=== PATIENT | female | born 1990 | race Caucasian/White ===

== ENCOUNTER 2020-07-25 19:19 | Emergency (ER) | payer SELFPAY ==
[2020-07-25 19:22] VITALS: BP 140/97; PULSE 96; RESP 14; TEMP 36.5; O2SAT 100; BMI 34.2
--- NOTE | 2020-07-25 20:06 | W.ED.HA ---
HPI - Headache General: Chief Complaint: Headache Stated Complaint: MIGRAINE Time Seen by Provider: 07/25/20 20:06 History of Present Illness: HPI Narrative: Patient is a 30-year-old female comes to the ED with a migraine. Patient just moved down to the [place] area within the last week. Patient says she started having migraines little over a month ago and before she moved down here to [place] she lived up in [place] and was scheduled to have an MRI of head performed there in [place] but patient moved here to [place] before scheduled MRI. She says she has been having multiple migraines for the past month. Currently she says this migraine started today and she has photophobia, nausea, blurry vision and right facial numbness/tingling and on right upper and lower extremity. Denies any head trauma, fall or motor vehicle accident to cause headache. She she describes the pain is generalized throughout her head but has more severe throbbing pain on right side of head. She rates the migraine a 10 out of 10. Associated symptoms: Reports nausea; Deny chest pain, fever(s), rash or vomiting Review of Systems Const: Denies: fever(s), chills or fatigue Eyes: Reports: photophobia; Denies: change in vision or eye discomfort ENMT: Denies: throat pain, odynophagia, nasal discharge or nasal congestion Card: Denies: chest pain, palpitations, edema, swelling of feet/ankles, dyspnea on exertion or orthopnea Resp: Denies: dyspnea, productive cough or non-productive cough GI: Reports: nausea; Denies: abdominal pain, vomiting, diarrhea, constipation or hematochezia : Denies: flank pain, dysuria or hematuria Musc: Denies: neck pain, back pain or extremity swelling Skin/Breast: Denies: rash or new lesions Neuro: Reports: headache(s) and numbness in extremities (Numbness/tingling to right side of body and right side of face.); Denies: weakness in extremities [facility] Female Reproductive History: Date of last menstrual period: 07/10/20 Physical Exam Const: COMMON NORMALS: no acute distress, patient oriented x3 and alert GENERAL APPEARANCE: cooperative and comfortable HENMT: COMMON NORMALS: normocephalic HEAD & SCALP: normocephalic MOUTH: Normal oral and palatal mucosa present THROAT: posterior oropharynx normal and uvula midline Eye: COMMON NORMALS: Equal, round and reactive pupils present, EOMs intact bilaterally, conjunctivae normal and normal visual castillo by confrontation CONJUNCTIVA: Yes conjunctivae normal PUPIL: Yes Equal, round and reactive pupils present Neck/C-Spine: COMMON NORMALS: supple GENERAL: Yes normal visual inspection Resp: COMMON NORMALS: normal respiratory effort, No retractions, No use of accessory muscles and clear to auscultation bilaterally AUSCULTATION: clear to auscultation bilaterally Cardio: COMMON NORMALS: regular rate, regular rhythm, S1 normal heart sound present, S2 normal heart sound present, No gallops present (Cardio), No clicks present (Cardio), No murmurs present (Cardio) and Peripheral pulses 2+ throughout RATE: regular rate RHYTHM: regular rhythm HEART SOUNDS: S1 normal heart sound present and S2 normal heart sound present PERIPHERAL PULSES: Peripheral pulses 2+ throughout GI: COMMON NORMALS: Normal to inspection, nondistended, normoactive bowel sounds present, Soft to palpation, non-tender and no masses PALPATION: Yes Soft to palpation : COMMON NORMALS: Yes no CVA tenderness BLADDER/KIDNEY EXAM: Yes no CVA tenderness Back/Pelvis: COMMON NORMALS: no CVA tenderness Extremity: COMMON NORMALS: normal to inspection Neuro: COMMON NORMALS: patient oriented x3, moves all extremities, no focal motor deficits and no sensory deficits noted SENSORIUM/ORIENTATION: Yes alert CRANIAL NERVES: Yes CN normal except as noted and Yes CN V (trigeminal) CN V laterality: right CN V right: all branch sensations abnormal (decreased sensation to to light touch) SENSORY EXAM: Yes extremities (intact) MOTOR EXAM: 5/5 motor strength present throughout Skin: COMMON NORMALS: no rashes or lesions noted GENERAL SKIN EXAM: no rashes or lesions noted and dry skin Course Reevaluation(s): Reevaluation #1: Patient was given migraine cocktail of Toradol, IV fluids, Decadron, Benadryl, Reglan and minimal improvement, but she was ready to go home. I offered her another medication to help alleviate migraine, but pt refused. Vital Signs: Vital signs: Vital Signs Temperature 97.7 F 07/25/20 19:22 Pulse Rate 73 07/25/20 22:25 Respiratory Rate 16 07/25/20 22:25 Blood Pressure 119/68 07/25/20 22:25 Pulse Oximetry 97 07/25/20 22:25 MDM - Headache MDM Narrative: Medical decision making narrative: Patient is a 30-year-old female comes to the ED with migraine. Patient has been having on and off again frequent migraines over the past month. Patient just moved to [place], but was previously living in [place] had an MRI of the head scheduled, but she is not able to go to MRI appointment because she was transferred by her job down to [place] before MRI appointment. Patient is complaining of having some tingling to face and right arm and right leg. Neuro exam was normal except for patient having decreased sensation to right side of face. CT of the head showed no acute findings. Patient was given migraine cocktail of Toradol, IV fluids, Decadron, Benadryl, Reglan and minimal improvement, but she was ready to go home. I offered her another medication to help alleviate migraine, but pt refused. I placed a referral to neurology with case management since patient having a history of recent migraines and had a scheduled MRI of her head in [place] but missed appointment since she moved here to [place]. Return to ED precautions given. Follow-up with PCP in 7 to 10 days for reevaluation I told patient that case management will be contacting her in the next several days to set up an appointment with neurology. Patient understood and agreed with plan. Imaging Data^: CT Head: Attestation: I personally reviewed and interpreted this imaging study as follows: Radiologist's impression: [address] [address] [address] Scan Report Signed Patient: RUFINO CHU Unit #: [id number] : 1990 Age/Sex: 30 / F ADM Date: 07/25/20 Loc: ER Room/Bed: Attending Dr: Ordering Provider/Ordering MD: Yossi Blake Date of Service: 07/25/20 Procedure(s): CT head wo con* [id number] Accession Number(s): [id number] Report Number: [id number] PROCEDURE INFORMATION: Exam: CT Head Without Contrast Exam date and time: 07/25/2020 8:31 PM Age: 30 years old Clinical indication: Pain; Headache; Additional info: Migraine TECHNIQUE: Imaging protocol: Computed tomography of the head without contrast. Radiation optimization: All CT scans at this facility use at least one of these dose optimization techniques: automated exposure control; mA and/or kV adjustment per patient size (includes targeted exams where dose is matched to clinical indication); or iterative reconstruction. COMPARISON: No relevant prior studies available. RADIATION DOSE METRICS: Total DLP (mGy-cm): 857.41 FINDINGS: The ventricles, sulci and basilar cisterns appear normal for the patient's stated age. There is no evidence of mass, hemorrhage or infarct. No extra-axial fluid collections are identified. There is no midline shift. There is no evidence of fracture. The visualized paranasal sinuses are well-aerated. CT/CT head wo con* [id number] IMPRESSION: No evidence for acute infarct, mass or hemorrhage. Radiation Dose CTDIVOL = (mGy): DLP = 857.41 (mGy-cm) Dictated By: Omer Winston MD Signed By: Omer Winston MD Signed Date/Time: 07/25/202052 DD/ 51 Discharge Plan Discharge Patient Disposition: Home Clinical Impression: Migraine Qualifiers: Migraine type: without aura Status migrainosus presence: without status migrainosus Intractability: not intractable Qualified Code(s): G43.009 - Migraine without aura, not intractable, without status migrainosus Condition: Stable Prescriptions: No Action Migraine Relief See Rx Instructions .ROUTE .COMPLEX RF: 0 Discharge Orders: Discharge Order (Routine); Ordered 07/25/20 Ordered By: Yossi Blake Discharge Diet: Regular Discharge Activity: Increase activity as tolerated Patient Instructions: Headache - Migraine (Adult) Activity Restrictions/Additional Instructions: Follow-up with primary care physician in 7 to 10 days for reevaluation. Case management should be contacting you in the next several days to set up an appointment with neurology. Take [id number] ibuprofen or Tylenol or Excedrin for future headaches. Return to the ER or your medical provider if condition worsens. Please read and understand discharge instructions. If any questions, please ask. Discharge Date/Time: 07/25/20 22:27 Coding Level of Care Code ED Examining Chair Assembler for Isak Fwneema Exam Comprehensive
--- NOTE | 2020-07-25 20:24 | CTR_ITS ---
PROCEDURE INFORMATION: Exam: CT Head Without Contrast Exam date and time: 07/25/2020 8:31 PM Age: 30 years old Clinical indication: Pain; Headache; Additional info: Migraine TECHNIQUE: Imaging protocol: Computed tomography of the head without contrast. Radiation optimization: All CT scans at this facility use at least one of these dose optimization techniques: automated exposure control; mA and/or kV adjustment per patient size (includes targeted exams where dose is matched to clinical indication); or iterative reconstruction. COMPARISON: No relevant prior studies available. RADIATION DOSE METRICS: Total DLP (mGy-cm): 857.41 FINDINGS: The ventricles, sulci and basilar cisterns appear normal for the patient's stated age. There is no evidence of mass, hemorrhage or infarct. No extra-axial fluid collections are identified. There is no midline shift. There is no evidence of fracture. The visualized paranasal sinuses are well-aerated. CT/CT head wo con* [id number] IMPRESSION: No evidence for acute infarct, mass or hemorrhage. Radiation Dose CTDIVOL = (mGy): DLP = 857.41 (mGy-cm)
[2020-07-25] MEDS: sodium chloride 0.9% 1,000 ML 999 ML IV (21:10)
[2020-07-25] MEDS: diphenhydrAMINE 50 mg/mL SDV 1mL 25 MG IVP (21:13)
[2020-07-25] MEDS: ketorolac 30 mg/mL INJ IVP (21:14)
[2020-07-25] MEDS: dexamethasone 10 mg/mL INJ IVP (21:14)
[2020-07-25] MEDS: metoclopramide 5 mg/mL SDV 2 mL 10 MG IVP (21:14)
[2020-07-25 22:25] VITALS: BP 119/68; PULSE 73; RESP 16; O2SAT 97
--- NOTE | 2020-07-26 09:33 | DCPLANNER ---
apartment community manager had message to schedule a follow up appointment for patient with Dr. Meyer office. apartment community manager called the office of Dr. Ngo, gave clinic patients information. apartment community manager was told that patients information would be given to [facility]. Clinic will call patient with appointment information.
--- NOTE | 2020-07-27 10:04 | DCPLANNER ---
Addendum entered by Sarai Ford 11/09/20 12:04: Patient attended follow up appointment with Dr. Ngo Original Note: Patient has a follow up appointment scheduled for , September 13, 2020 at 1:[address] Ngo. Clinic will call patient with appointment information.
== END 2020-07-25 22:27 | disposition home or self-care (01) ==
PROVIDERS: Emergency Provider Physician Assistant
DX: G43.009 Migraine without aura, not intractable, without status migrainosus (principal)
CPT/HCPCS: 12345; 70450; 96361; 96374; 96375; 99282; J1100; J1200; J1885; J2765; J7030

== ENCOUNTER → 2020-08-01 12:18 | Outpatient (BNVA) | payer SELFPAY | PROVIDERS: Visit Provider Specialist | DX: G43.711 Chronic migraine without aura, intractable, with status migrainosus (principal) | CPT/HCPCS: 96372; 99204; J1885; J2405 ==

== ENCOUNTER 2020-08-01 14:56 | Outpatient (CLI) | payer SELFPAY ==
[2020-08-01 15:21] LABS: Basophils % 0.4 %; Eosinophils % 0.1 %; Hemoglobin 13.7 g/dL (11.5-15.3); Lymphocytes # 1.6 10^3/uL (0.8-4.8); Lymphocytes % 14.6 %; Mean Corpuscular HGB Conc 31.1 g/dL (30.0-36.0); Mean Corpuscular Hemoglobin 27.2 pg (28.0-34.0); Mean Corpuscular Volume 87.5 fL (81-99); Mean Platelet Volume 10.3 fL (7.4-10.4); Monocytes # 0.6 10^3/uL (0.2-0.9); Neutrophils % 78.5 %; Nucleated Red Blood Cells % 0 %; Platelet Count 329 10^3/cmm (130-400); Red Blood Count 5.03 10^6/uL (4.1-5.3); Red Cell Distribution Width 13.6 % (12.1-15.1); White Blood Count 10.7 10^3/uL (4.0-10.0)
[2020-08-01 16:06] LABS: Alanine Aminotransferase 14 U/L (0-33); Albumin Level 4.6 g/dL (3.5-5.2); Alkaline Phosphatase 67 IU/L (35-105); Blood Urea Nitrogen 16 mg/dL (6-20); Calcium 9.2 mg/dL (8.5-10.5); Carbon Dioxide 24 mmol/L (22-29); Chloride 100 mmol/L (98-107); Glomerular Filtration Rate 117.4 mL/min (90-130); Glucose 91 mg/dL (65-115); Osmolality Calculated 285 mOsm/kg (285-295); Sodium 137 mmol/L (136-145); Total Bilirubin 0.7 mg/dL (0.15-1.2); Total Protein 8.6 g/dL (6.6-8.7)
[2020-08-01 17:30] LABS: Anion Gap 17.8 (5-19); Aspartate Amino Transferase 16 U/L (0-32); Potassium 4.8 mmol/L (3.5-5.1)
== END 2020-08-01 14:57 | disposition home or self-care (01) ==
LOC: LAB 15:00
PROVIDERS: Visit Provider Specialist
DX: Z00.00 Encounter for general adult medical examination without abnormal findings (principal)
CPT/HCPCS: 80053; 84443; 85025

== ENCOUNTER → 2020-09-19 08:08 | Outpatient (BNVA) | payer SELFPAY | PROVIDERS: Visit Provider Specialist | DX: G43.009 Migraine without aura, not intractable, without status migrainosus (principal) | CPT/HCPCS: 99213 ==

== ENCOUNTER 2021-01-17 17:16 | Emergency (ER) | payer SELFPAY ==
[2021-01-17 17:22] VITALS: BP 143/99; PULSE 81; RESP 16; TEMP 36.6; O2SAT 99; BMI 31.8
--- NOTE | 2021-01-17 17:25 | ECG_ITS ---
[facility] Test Date: 2021-01-17 Pat Name: Selena Henson Department: Room: Gender: Female Shrimp Trawler Captain: : 1990 Requested By: Jeannette Duarte Order Number: [id number] Reading MD: KENNETH MADRID Measurements Intervals [place] Rate: 88 P: 36 WI: 178 QRS: 12 QRSD: 88 T: 31 QT: 366 QTc: 444 Interpretive Statements SINUS RHYTHM POSSIBLE LEFT ATRIAL ENLARGEMENT [-0.1mV P WAVE IN V1/V2] LOW QRS VOLTAGE IN PRECORDIAL LEADS [QRS DEFLECTION < 1.0 mV IN CHEST LEADS] No previous ECG available for comparison Electronically Signed On 01-18-2021 19:24:57 RESIDENTIAL SALES MANAGER by KENNETH MADRID [id number]
--- NOTE | 2021-01-17 17:56 | ED_ITS ---
HPI - Chest Pain General: Chief Complaint: Chest Pain Stated Complaint: NUMBNESS R SIDE FACE, DIZZY, HEAVY IN CHEST Time Seen by Provider: 01/17/21 17:25 Source: patient and family Mode of arrival: ambulatory Limitations: no limitations History of Present Illness: HPI narrative: 30-year-old female complaining of paresthesias, intermittent sharp substernal chest pains, dizziness, right facial droop intermittently over the past week. She has had similar symptoms in the past related to her migraines and is followed by Dr. Ngo. She has been taking her Topamax daily as prescribed, and feels like it is making her symptoms worse. No vision change, no sensory or taste changes of her tongue. She states that she has had work-up for stroke in the past, including MRI and CTs. She denies any shortness of breath or fever. She is not on OCPs. Associated symptoms: Deny abdominal pain, dyspnea, fever(s), nausea, p alpitations or vomiting Review of Systems General: Reports: 10 or more systems reviewed and unremarkable except in HPI and below Const: Denies: fever(s), chills, body aches, change in appetite, change in weight, fatigue or malaise Eyes: Denies: change in vision, blurry vision or photophobia ENMT: Denies: hoarseness Card: Reports: chest pain and lightheadedness; Denies: palpitations, irregular heart rhythm or edema Resp: Denies: dyspnea, productive cough or non-productive cough GI: Denies: abdominal pain, nausea or vomiting Musc: Denies: neck pain, back pain, extremity pain or extremity swelling Skin/Breast: Denies: rash, pruritus or erythema Neuro: Reports: headache(s), numbness in extremities and dizziness; Denies: frequent falls, Slurred speech present or seizure-like activity Psych: Reports: anxiety and depression Endo: Denies: polyuria Bryan/Lymph: Denies: easy bruising or easy bleeding All/Imm: Denies: urticaria, throat swelling, tongue swelling or facial swelling [facility] Female Reproductive History: Date of last menstrual period: 12/26/20 Physical Exam Const: COMMON NORMALS: no acute distress and patient oriented x3 GENERAL APPEARANCE: cooperative; not in distress, not anxious, not ill appearing, not frail appearing and not Limp noted NUTRITIONAL APPEARANCE: overweight ORIENTATION/CONSCIOUSNESS: Yes awake, Yes oriented to person, Yes oriented to place and Yes oriented to time HENMT: COMMON NORMALS: normocephalic and Normal external nose present HEAD & SCALP: normocephalic FACE & SINUS: Flattened naso-labial fold present Right; no erythema and no edema NOSE: Normal external nose present MOUTH: Normal oral and palatal mucosa present and tongue normal THROAT: uvula midline Eye: COMMON NORMALS: Equal, round and reactive pupils present, EOMs intact bilaterally, conjunctivae normal and no scleral icterus ALIGNMENT: Yes alignment normal CONJUNCTIVA: Yes conjunctivae normal PUPIL: Yes Equal, round and reactive pupils present Neck/C-Spine: COMMON NORMALS: full ROM, no lymphadenopathy and supple Resp: COMMON NORMALS: normal respiratory effort, No retractions and No use of accessory muscles Cardio: COMMON NORMALS: regular rate, regular rhythm, S1 normal heart sound present, S2 normal heart sound present and No murmurs present (Cardio) RATE: regular rate RHYTHM: regular rhythm HEART SOUNDS: S1 normal heart sound present and S2 normal heart sound present GI: COMMON NORMALS: Normal to inspection, nondistended, normoactive bowel sounds present and Soft to palpation INSPECTION: Yes normal to inspection AUSCULTATION: Yes normoactive bowel sounds PALPATION: Yes Soft to palpation, No Tenderness to palpation present (GI), No Guarding due to palpation present (GI) and No Rigid due to palpation Extremity: COMMON NORMALS: normal to inspection, full ROM, capillary refill normal and no clubbing, cyanosis or edema Neuro: COMMON NORMALS: patient oriented x3 SENSORIUM/ORIENTATION: Yes orien charisse to person, Yes oriented to place and Yes oriented to time CRANIAL NERVES: Yes CN VII (facial) Laterality: right CN VII findings: flattened naso-labial fold, weak closing of eye(s) and asymmetrical smile COORDINATION/BALANCE: [id number] test normal and avld-mt-aklv test normal SPEECH: speech normal GAIT: Yes Normal gait present MOTOR EXAM: 5/5 motor strength present throughout, no tremor noted, Motor fasciculations not present and Motor abnormalities not present COORDINATION: [id number]-[id number] test normal and izls-rr-dbxz test normal Psych: COMMON NORMALS: Normal thought process present and speech normal APPEARANCE: Yes grossly normal ATTITUDE: Yes Withdrawn affect present ACTIVITY/MOTOR BEHAVIOR: Yes appropriate eye contact SPEECH: Yes normal speech MOOD & AFFECT: Yes depressed mood THOUGHT PROCESS: Normal thought process present THOUGHT CONTENT: Yes Normal thought content present ATTENTION/CONCENTRATION: Yes attention grossly intact MEMORY/COGNITION: Yes memory grossly intact and Yes cognition grossly intact Course Vital Signs: Vital signs: Vital Signs Temperature 97.9 F 01/17/21 17:22 Pulse Rate 78 01/17/21 21:19 Respiratory Rate 14 01/17/21 21:19 Blood Pressure 117/78 01/17/21 21:19 Pulse Oximetry 100 01/17/21 21:19 MDM - Chest Pain MDM Narrative: Medical decision making narrative: 30-year-old female with acute on chronic paresthesias and right facial palsy. Facial palsy is mild and involves the forehead?so may be a mild case of Lora's palsy, however if symptoms been ongoing for a week, and intermittent. She has a history of complex migraines. No acute abnormalities on chest x-ray or EKG. Hypokalemia, otherwise chemistry normal. Given oral replacement. Urine specimen likely contaminated instead of active infection D-dimer wnl Reviewed her medical records, she has had a CT done, but apparently she missed her appointments for MRI on several occasions. CTA head neck negative for any significant stenosis or other acute findings. Paresthesias of her hand and face improved after potassium replacement. Recommended prompt follow-up with Dr. Ngo in clinic. Strict return precautions. Differential diagnosis; TIA, CVA, Lora's palsy, complex migraine, somatization. Medical Records: Attestation: I reviewed the patient's medical records. Lab Data: Attestation: I reviewed the patient's lab results. Labs: Lab Results 01/17/21 01/17/21 01/17/21 Range/Units 18:50 18:50 19:37 WBC 8.8 (4.0-10.0) 10^3/ uL RBC 4.66 (4.1-5.3) 10^6/u L Hgb 12.7 (11.5-15.3) g/dL Hct 40.4 (37.0-47.0) % MCV 86.7 (81-99) fL MCH 27.3 L (28.0-34.0) pg MCHC 31.4 (30.0-36.0) g/dL RDW 13.6 (12.1-15.1) % Plt Count 317 (130-400) 10^3/c mm MPV 11.0 H (7.4-10.4) fL Neut % (Auto) 68.8 % Lymph % (Auto) 21.5 % Grimes % (Auto) 8.3 % Eos % (Auto) 0.3 % Baso % (Auto) 0.6 % Neut # (Auto) 6.07 (1.8-7.7) 10^3/u L Lymph # (Auto) 1.9 (0.8-4.8) 10^3/u L Grimes # (Auto) 0.7 (0.2-0.9) 10^3/u L Eos # (Auto) 0.0 (0.0-0.8) 10^3/u L Baso # (Auto) 0.1 (0.0-0.1) 10^3/u L Nucleated RBC % (a uto) 0 % Nucleated RBCs # 0.0 /100WBC D-Dimer (0-0.59) ug/mIFE U Sodium 137 (136-145) mmol/L Potassium 3.3 L (3.5-5.1) mmol/L Chloride 105 (98-107) mmol/L Carbon Dioxide 23 (22-29) mmol/L Anion Gap 12.3 (5-19) BUN 9 (6-20) mg/dL Creatinine 0.7 (0.5-0.9) mg/dL GFR Calculation 98.3 (90-130) mL/min Glucose 84 (65-115) mg/dL Calculated Osmolal ity 282 L (285-295) mOsm/k g Calcium 8.7 (8.5-10.5) mg/dL Magnesium 1.9 (1.7-2.3) mg/dL Total Bilirubin 0.5 (0.15-1.2) mg/dL AST 16 (0-32) U/L ALT 13 (0-33) U/L Alkaline Phosphata se 73 (35-105) IU/L Total Protein 7.3 (6.6-8.7) g/dL Albumin 3.9 (3.5-5.2) g/dL Globulin 3.4 (1.3-4.6) g/dL HCG, Qual Negative (Negative) Urine Color (Yellow) Urine Appearance (CLEAR) Urine pH (5-7) Ur Specific Gravit y (1.005-1.030) Urine Protein (Negative) Urine Glucose (UA) (Normal) Urine Ketones (Negative) Urine Blood (Negative) Urine Nitrate (Negative) Urine Bilirubin (Negative) Urine Urobilinogen (Negative) mg/dL Ur Leukocyte Clemencia ase (Negative) Urine RBC (0-2) /hpf Urine WBC (0-5) /hpf Ur Squamous Epith Cells (0-5) /hpf Amorphous Sediment Urine Bacteria (NONE) /hpf Urine Opiates Scre en (Negative) ng/mL Ur Barbiturates Sc reen (Negative) ng/mL Ur Phencyclidine S crn (Negative) ng/mL Ur Amphetamines Sc reen (Negative) ng/mL U Benzodiazepines Scrn (Negative) ng/mL Urine Cocaine Scre en (Negative) ng/mL U Marijuana (THC) Screen (Negative) ng/mL 01/17/21 01/17/21 01/17/21 Range/Units 19:37 19:37 20:30 WBC (4.0-10.0) 10^3/ uL RBC (4.1-5.3) 10^6/u L Hgb (11.5-15.3) g/dL Hct (37.0-47.0) % MCV (81-99) fL MCH (28.0-34.0) pg MCHC (30.0-36.0) g/dL RDW (12.1-15.1) % Plt Count (130-400) 10^3/c mm MPV (7.4-10.4) fL Neut % (Auto) % Lymph % (Auto) % Grimes % (Auto) % Eos % (Auto) % Baso % (Auto) % Neut # (Auto) (1.8-7.7) 10^3/u L Lymph # (Auto) (0.8-4.8) 10^3/u L Grimes # (Auto) (0.2-0.9) 10^3/u L Eos # (Auto) (0.0-0.8) 10^3/u L Baso # (Auto) (0.0-0.1) 10^3/u L Nucleated RBC % (a uto) % Nucleated RBCs # /100WBC D-Dimer 0.35 (0-0.59) ug/mIFE U Sodium (136-145) mmol/L Potassium (3.5-5.1) mmol/L Chloride (98-107) mmol/L Carbon Dioxide (22-29) mmol/L Anion Gap (5-19) BUN (6-20) mg/dL Creatinine (0.5-0.9) mg/dL GFR Calculation (90-130) mL/min Glucose (65-115) mg/dL Calculated Osmolal ity (285-295) mOsm/k g Calcium (8.5-10.5) mg/dL Magnesium (1.7-2.3) mg/dL Total Bilirubin (0.15-1.2) mg/dL AST (0-32) U/L ALT (0-33) U/L Alkaline Phosphata se (35-105) IU/L Total Protein (6.6-8.7) g/dL Albumin (3.5-5.2) g/dL Globulin (1.3-4.6) g/dL HCG, Qual (Negative) Urine Color Yellow (Yellow) Urine Appearance Cloudy (CLEAR) Urine pH 7 (5-7) Ur Specific Gravit y 1.015 (1.005-1.030) Urine Protein Neg (Negative) Urine Glucose (UA) Norm (Normal) Urine Ketones 2+ H (Negative) Urine Blood Neg (Negative) Urine Nitrate Negative (Negative) Urine Bilirubin 1+ H (Negative) Urine Urobilinogen Norm (Negative) mg/dL Ur Leukocyte Clemencia ase 1+ H (Negative) Urine RBC 5-10 H (0-2) /hpf Urine WBC 10-15 H (0-5) /hpf Ur Squamous Epith Cells 15-25 H (0-5) /hpf Amorphous Sediment Not Reportable Urine Bacteria 1+ H (NONE) /hpf Urine Opiates Scre en Negative (Negative) ng/mL Ur Barbiturates Sc reen Negative (Negative) ng/mL Ur Phencyclidine S crn Negative (Negative) ng/mL Ur Amphetamines Sc reen Negative (Negative) ng/mL U Benzodiazepines Scrn Negative (Negative) ng/mL Urine Cocaine Scre en Negative (Negative) ng/mL U Marijuana (THC) Screen Negative (Negative) ng/mL Discharge Plan Discharge Patient Disposition: Home Clinical Impression: Atypical chest pain, Hypokalemia, Paresthesia, Facial palsy Migraine aura, persistent Qualifiers: Status migrainosus presence: without status migrainosus Intractability: not intractable Qualified Code(s): G43.509 - Persistent migraine aura without cerebral infarction, not intractable, without status migrainosus Condition: Stable Prescriptions: No Action ibuprofen 200 mg Tablet 400 mg PO PRN RF: 0 Probiotic 1 cap PO DAILY RF: 0 Effexor XR 150 mg capsule,extended release 24hr 150 mg PO DAILY@18 RF: 0 Topamax 100 mg tablet 100 mg PO DAILY@18 RF: 0 Discharge Orders: Discharge ED (Routine); Ordered 01/17/21 Ordered By: Jeannette Duarte Discharge Diet: Advance as tolerated Discharge Activity: Resume usual activity Patient Instructions: Hypokalemia (ED), Paresthesia (ED) Activity Restrictions/Additional Instructions: Call to schedule follow-up with Dr. Ngo soon as possible for recheck and to schedule further testing. Make sure you eat potassium rich foods regularly; fruits, vegetables etc. Return immediately to the ER if develop worsening numbness and tingling, difficulty walking, headache or vision changes. Coding Level of Care Code ED Oxygen Plant Operator for Isak Luu
[2021-01-17 19:16] LABS: Basophils # 0.1 10^3/uL (0.0-0.1); Basophils % 0.6 %; Eosinophils % 0.3 %; Hematocrit 40.4 % (37.0-47.0); Hemoglobin 12.7 g/dL (11.5-15.3); Lymphocytes # 1.9 10^3/uL (0.8-4.8); Lymphocytes % 21.5 %; Mean Corpuscular HGB Conc 31.4 g/dL (30.0-36.0); Mean Corpuscular Hemoglobin 27.3 pg (28.0-34.0); Mean Corpuscular Volume 86.7 fL (81-99); Monocytes # 0.7 10^3/uL (0.2-0.9); Monocytes % 8.3 %; Neutrophils # 6.07 10^3/uL (1.8-7.7); Neutrophils % 68.8 %; Nucleated Red Blood Cells % 0 %; Platelet Count 317 10^3/cmm (130-400); Red Blood Count 4.66 10^6/uL (4.1-5.3); Red Cell Distribution Width 13.6 % (12.1-15.1); White Blood Count 8.8 10^3/uL (4.0-10.0)
--- NOTE | 2021-01-17 19:42 | CTR_ITS ---
PROCEDURE INFORMATION: Exam: CT Angiography Head With Contrast, Arteries Exam date and time: 01/17/2021 8:24 PM Age: 30 years old Clinical indication: Speech disturbance and visual disturbance and weakness; Additional info: Subacute neuro deficits-right facial droop TECHNIQUE: Imaging protocol: Computed tomography angiography of the head with intravenous contrast. 3D rendering (Not supervised by radiologist): MIP and/or 3D reconstructed images were created by the technologist. Radiation optimization: All CT scans at this facility use at least one of these dose optimization techniques: automated exposure control; mA and/or kV adjustment per patient size (includes targeted exams where dose is matched to clinical indication); or iterative reconstruction. Contrast material: OMNI 350; Contrast volume: 95 ml; Contrast route: INTRAVENOUS (IV); COMPARISON: No relevant prior studies available. RADIATION DOSE METRICS: Total DLP (mGy-cm): 2795.92 FINDINGS: ANTERIOR CIRCULATION: Right internal carotid artery: Unremarkable. Intracranial segment is patent with no significant stenosis. No aneurysm. Right middle cerebral artery: Unremarkable. No occlusion or significant stenosis. No aneurysm. Right anterior cerebral artery: Unremarkable. No occlusion or significant stenosis. No aneurysm. Left internal carotid artery: Unremarkable. Intracranial segment is patent with no significant stenosis. No aneurysm. Left middle cerebral artery: Unremarkable. No occlusion or significant stenosis. No aneurysm. Left anterior cerebral artery: Unremarkable. No occlusion or significant stenosis. No aneurysm. POSTERIOR CIRCULATION: Right vertebral artery: Unremarkable. No occlusion or significant stenosis. No aneurysm. Left vertebral artery: Unremarkable. No occlusion or significant stenosis. No aneurysm. Basilar artery: Unremarkable. No occlusion or significant stenosis. No aneurysm. Right posterior cerebral artery: Unremarkable. No occlusion or significant stenosis. No aneurysm. Left posterior cerebral artery: Unremarkable. No occlusion or significant stenosis. No aneurysm. IMPRESSION: No large vessel stenosis or occlusion. PROCEDURE INFORMATION: Exam: CT Angiography Neck With Contrast Exam date and time: 01/17/2021 8:24 PM Age: 30 years old Clinical indication: Speech disturbance and visual disturbance and weakness; Additional info: Subacute neuro deficits-right facial droop TECHNIQUE: Imaging protocol: Computed tomography angiography of the neck with intravenous contrast. 3D rendering (Not supervised by radiologist): MIP and/or 3D reconstructed images were created by the technologist. Radiation optimization: All CT scans at this facility use at least one of these dose optimization techniques: automated exposure control; mA and/or kV adjustment per patient size (includes targeted exams where dose is matched to clinical indication); or iterative reconstruction. Contrast material: OMNI 350; Contrast volume: 95 ml; Contrast route: INTRAVENOUS (IV); COMPARISON: No relevant prior studies available. RADIATION DOSE METRICS: Total DLP (mGy-cm): 2795.92 FINDINGS: Right common carotid artery: No stenosis. No dissection or occlusion. Right internal carotid artery: No stenosis of the extracranial segment. No dissection or occlusion. Right external carotid artery: No occlusion or stenosis of the origin. Right vertebral artery: No stenosis. No dissection or occlusion. Left common carotid artery: No stenosis. No dissection or occlusion. Left internal carotid artery: No stenosis of the extracranial segment. No dissection or occlusion. Left external carotid artery: No occlusion or stenosis of the origin. Left vertebral artery: No stenosis. No dissection or occlusion. Bones/joints: No acute fracture. Soft tissues: Normal. No significant soft tissue swelling. CT/CT angio headneck* [id number] IMPRESSION: No stenosis or occlusion. REFERENCES: NASCET CRITERIA. The degree of internal carotid artery stenosis is based on NASCET criteria. Normal is no stenosis. Mild is less than 50% stenosis. Moderate is 50-69% stenosis. Severe is 70% to 99% stenosis. Total occlusion is no detectable patent lumen. Radiation Dose CTDIVOL = (mGy): DLP = 2795.92~2795.92 (mGy-cm)
[2021-01-17 19:43] LABS: Alanine Aminotransferase 13 U/L (0-33); Albumin Level 3.9 g/dL (3.5-5.2); Alkaline Phosphatase 73 IU/L (35-105); Anion Gap 12.3 (5-19); Aspartate Amino Transferase 16 U/L (0-32); Blood Urea Nitrogen 9 mg/dL (6-20); Calcium 8.7 mg/dL (8.5-10.5); Carbon Dioxide 23 mmol/L (22-29); Chloride 105 mmol/L (98-107); Globulin 3.4 g/dL (1.3-4.6); Glomerular Filtration Rate 98.3 mL/min (90-130); Glucose 84 mg/dL (65-115); Magnesium 1.9 mg/dL (1.7-2.3); Osmolality Calculated 282 mOsm/kg (285-295); Potassium 3.3 mmol/L (3.5-5.1); Sodium 137 mmol/L (136-145); Total Bilirubin 0.5 mg/dL (0.15-1.2); Total Protein 7.3 g/dL (6.6-8.7)
[2021-01-17 20:17] LABS: HCG Qualitative Urine. Negative (Negative)
[2021-01-17 20:31] LABS: Amphetamines Screen Urine Negative (Negative); Barbiturates Screen Urine Negative (Negative); Benzodiazepines Screen Urine Negative (Negative); Blood Urine Neg (Negative); Cocaine Screen Urine Negative (Negative); Glucose Urine UA Norm (Normal); Ketones Urine 2+ (Negative); Nitrate Urine Negative (Negative); Opiate Screen Urine Negative (Negative); PCP Screen Urine Negative (Negative); Protein Urine Neg (Negative); Specific Gravity, Urine 1.015 (1.005-1.030); THC Screen Urine Negative (Negative); Urine Appearance Cloudy (CLEAR); Urine Color Yellow (Yellow); pH Urine 7 (5-7)
[2021-01-17] MEDS: potassium chloride oral liq 20 mEq/15 mL UDC 40 MEQ PO (20:31)
[2021-01-17 20:32] LABS: Add Urine Microscopic? YES; Bilirubin Urine 1+ (Negative); Leukocyte Esterase Urine 1+ (Negative); Urobilinogen Urine Norm (Negative)
[2021-01-17 20:36] LABS: Add Urine Culture? No; Bacteria Urine 1+ /hpf; Squamous Epithelial Cell Urine 15-25 /hpf (0-5)
[2021-01-17 20:59] LABS: D Dimer 0.35 ug/mIFEU (0-0.59)
[2021-01-17] MEDS: iohexol 350 mg/mL 100 mL Btl IV (21:07)
[2021-01-17 21:19] VITALS: BP 117/78; PULSE 78; RESP 14; O2SAT 100
== END 2021-01-17 21:41 | disposition home or self-care (01) ==
PROVIDERS: Emergency Provider Family Medicine
DX: R07.89 Other chest pain (principal); G43.509 Persistent migraine aura without cerebral infarction, not intractable, without status migrainosus; E87.6 Hypokalemia; R20.2 Paresthesia of skin; G51.0 Bell's palsy
CPT/HCPCS: 70496; 70498; 80053; 80306; 81001; 81025; 83735; 85025; 85378; 93005; 99283; Q9967

== ENCOUNTER 2021-10-24 20:53 | Emergency (ER) | payer SELFPAY ==
[2021-10-24 21:12] VITALS: BP 126/70; PULSE 81; RESP 18; TEMP 36.6; O2SAT 100; BMI 31.8
--- NOTE | 2021-10-24 21:28 | ECG_ITS ---
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 Measurements Intervals [place] Rate: 62 P: 17 CO: 150 QRS: 17 QRSD: 85 T: 5 QT: 406 QTc: 415 Interpretive Statements SINUS RHYTHM Compared to ECG 01/17/2021 17:45:11 No significant changes Electronically Signed On 10-26-2021 7:37:33 REPOSSESSION AGENT by Bindu Poe M.D. [email or web address]
--- NOTE | 2021-10-24 22:44 | W.ED.DIZZY ---
HPI - Dizziness General: Chief Complaint: Dizziness Stated Complaint: SOB Numb on rt side of face\Hands swollen Time Seen by Provider: 10/24/21 22:39 History of Present Illness: HPI Narrative: Patient states she was on her way to work tonight and felt some tingling in her face and her right arm and decided to come get checked out. Patient has a history of tingling right arm and her face with previous attacks. Patient does have a history of anxiety. Patient denies any reason being anxious right now. MD elicited complaint: dizziness and other (Tingling) Onset (ago): minute(s) Timing: sudden onset Severity: mild Description: lightheadedness Exacerbating factors: nothing Relieving factors: nothing Associated symptoms: Reports no associated symptoms; Denies chest pain, chills, headache(s), nausea, nasal congestion or vomiting Associated neuro symptoms: Reports no associated symptoms Review of Systems Const: Denies: fever(s), chills or body aches Eyes: Denies: change in vision or blurry vision ENMT: Denies: throat pain or nasal congestion Card: Denies: chest pain or dyspnea on exertion Resp: Denies: dyspnea, productive cough or non-productive cough GI: Denies: abdominal pain, nausea or vomiting Musc: Denies: extremity pain Skin/Breast: Denies: rash Neuro: Reports: dizziness and other (Tingling right arm right side of face.); Denies: headache(s) Psych: Denies: anxiety or depression Bryan/Lymph: Denies: easy bruising [facility] ED Female Reproductive History: Date of last menstrual period: 12/26/20 Physical Exam Const: COMMON NORMALS: no acute distress, average body habitus and patient oriented x3 HENMT: COMMON NORMALS: normocephalic HEAD & SCALP: normal to inspection and normocephalic FACE & SINUS: normal facial exam Eye: COMMON NORMALS: conjunctivae normal GENERAL EYE: appearance normal, both eyes and all related structures CONJUNCTIVA: Yes conjunctivae normal Neck/C-Spine: COMMON NORMALS: no JVD Chest: COMMONS NORMALS: normal inspection of the chest Resp: COMMON NORMALS: normal respiratory effort and clear to auscultation bilaterally AUSCULTATION: clear to auscultation bilaterally Cardio: COMMON NORMALS: no JVD, regular rate and regular rhythm RATE: regular rate RHYTHM: regular rhythm GI: COMMON NORMALS: Normal to inspection, nondistended, normoactive bowel sounds present Extremity: COMMON NORMALS: normal to inspection and full ROM Neuro: COMMON NORMALS: patient oriented x3, CN's II-XII intact bilaterally and moves all extremities Course Vital Signs: Vital signs: Vital Signs Temperature 98 F 10/24/21 21:12 Pulse Rate 75 10/25/21 00:22 Respiratory Rate 17 10/25/21 00:22 Blood Pressure 124/77 10/25/21 00:22 Pulse Oximetry 96 10/25/21 00:22 MDM - Dizziness MDM Narrative: Medical decision making narrative: Patient with dizziness and some tingling in her right hand. Patient has a longstanding history of this as per patient. Happen when she had anxiety attacks. Patient on medication for anxiety any longer. Patient had been seen Dr. Ngo for anxiety and migraines. Patient stopped Topamax due to side effects. Patient was given Ativan here in the ER and she responded very well to that. Patient encouraged follow-up primary care and referral was made. Lab Data: Labs: Lab Results 10/24/21 10/24/21 23:32 23:32 WBC 8.1 10^3/uL 10^3/ uL (4.0-10.0) RBC 4.94 10^6/uL 10^6 /uL (4.1-5.3) Hgb 13.5 g/dL g/dL (11.5-15.3) Hct 43.2 % % (37.0-47.0) MCV 87.4 fl fl (81-99) MCH 27.3 pg L pg (28.0-34.0) MCHC 31.3 g/dL g/dL (30.0-36.0) RDW 13.7 % % (12.1-15.1) Plt Count 363 10^3/cmm 10^3 /cmm (130-400) MPV 10.6 fL H fL (7.4-10.4) Neut % (Auto) 61.6 % % Lymph % (Auto) 27.3 % % [place] % (Auto) 8.9 % % Eos % (Auto) 1.1 % % Baso % (Auto) 0.7 % % Neut # (Auto) 4.97 10^3/uL 10^3 /uL (1.8-7.7) Lymph # (Auto) 2.2 10^3/uL 10^3/ uL (0.8-4.8) [place] # (Auto) 0.7 10^3/uL 10^3/ uL (0.2-0.9) Eos # (Auto) 0.1 10^3/uL 10^3/ uL (0.0-0.8) Baso # (Auto) 0.1 10^3/uL 10^3/ uL (0.0-0.1) Nucleated RBC % (a uto) 0 % % Nucleated RBCs # 0.0 /100WBC /100W BC Sodium 141 mmol/L mmol/L (136-145) Potassium 3.5 mmol/L mmol/L (3.5-5.1) Chloride 105 mmol/L mmol/L (98-107) Carbon Dioxide 19 mmol/L L mmol/ L (22-29) Anion Gap 20.5 H (5-19) BUN 12 mg/dL mg/dL (6-20) Creatinine 0.6 mg/dL mg/dL (0.5-0.9) GFR Calculation 116.6 mL/min mL/m in (90-130) Glucose 106 mg/dL mg/dL (65-115) Calculated Osmolal ity 292 mOsm/kg mOsm/ kg (285-295) Calcium 8.1 mg/dL L mg/dL (8.5-10.5) EKG Data^: EKG 1: EKG interpretation date: 10/24/21 EKG interpretation time: 22:55 Computer generated interpretation: Normal sinus rhythm, ventricular rate 62 bpm MO interval is 150 ms QRS durations 85 ms QT is 406 ms Discharge Plan Discharge Patient Disposition: Home Clinical Impression: Dizziness Condition: Stable Prescriptions: No Action ibuprofen 200 mg Tablet 400 mg PO PRN RF: 0 Probiotic 1 cap PO DAILY RF: 0 Effexor XR 150 mg capsule,extended release 24hr 150 mg PO DAILY@18 RF: 0 Topamax 100 mg tablet 100 mg PO DAILY@18 RF: 0 Discharge Orders: Discharge ED (Routine); Ordered 10/25/21 Ordered By: Matt Sandoval Discharge Diet: Usual diet Discharge Activity: Increase activity as tolerated Activity Restrictions/Additional Instructions: Hospital contact with appointment for primary care provider. Off work until Thursday night. You can return here or follow-up with a primary care provider as needed. Stand Alone Forms: Work/School Release Coding Level of Care Code ED Certified Driver Examiner for Chg Fwd Exam Comprehensive
[2021-10-24 23:18] VITALS: BP 122/80; PULSE 69; RESP 17; O2SAT 96
[2021-10-24] MEDS: LORazepam 1 mg Tablet PO (23:46)
[2021-10-24 23:47] LABS: Basophils # 0.1 10^3/uL (0.0-0.1); Basophils % 0.7 %; Eosinophils # 0.1 10^3/uL (0.0-0.8); Eosinophils % 1.1 %; Hematocrit 43.2 % (37.0-47.0); Hemoglobin 13.5 g/dL (11.5-15.3); Lymphocytes # 2.2 10^3/uL (0.8-4.8); Lymphocytes % 27.3 %; Mean Corpuscular HGB Conc 31.3 g/dL (30.0-36.0); Mean Corpuscular Hemoglobin 27.3 pg (28.0-34.0); Mean Corpuscular Volume 87.4 fl (81-99); Mean Platelet Volume 10.6 fL (7.4-10.4); Monocytes # 0.7 10^3/uL (0.2-0.9); Monocytes % 8.9 %; Neutrophils # 4.97 10^3/uL (1.8-7.7); Neutrophils % 61.6 %; Nucleated Red Blood Cells % 0 %; Platelet Count 363 10^3/cmm (130-400); Red Blood Count 4.94 10^6/uL (4.1-5.3); Red Cell Distribution Width 13.7 % (12.1-15.1); White Blood Count 8.1 10^3/uL (4.0-10.0)
[2021-10-25 00:04] LABS: Anion Gap 20.5 (5-19); Blood Urea Nitrogen 12 mg/dL (6-20); Calcium 8.1 mg/dL (8.5-10.5); Carbon Dioxide 19 mmol/L (22-29); Chloride 105 mmol/L (98-107); Creatinine Clr Calc Pharmacy 137.4712; Glomerular Filtration Rate 116.6 mL/min (90-130); Glucose 106 mg/dL (65-115); Osmolality Calculated 292 mOsm/kg (285-295); Potassium 3.5 mmol/L (3.5-5.1); Sodium 141 mmol/L (136-145)
[2021-10-25 00:22] VITALS: BP 124/77; PULSE 75; RESP 17; O2SAT 96
--- NOTE | 2021-10-29 15:33 | PC.SOCIAL ---
Addendum entered by Lucila Villaseñor RN 10/30/21 08:30: 10/30/2021 attempted second call to patient and no answer. No return call received from message left yesterday. Original Note: unable to reach patient at either number listed left message on both. Referral per ED provider Matt Tapia for PCP will need to see who patient would prefer to see and ensure she will attend appt.
== END 2021-10-25 00:28 | disposition home or self-care (01) ==
PROVIDERS: Emergency Provider Nurse Practitioner Family
DX: R42 Dizziness and giddiness (principal)
CPT/HCPCS: 36415; 80048; 85025; 93005; 99283

== ENCOUNTER → 2023-06-02 15:43 | Outpatient (BNVA) | payer BC, SELFPAY | PROVIDERS: Visit Provider Nurse Practitioner Family | DX: S52.352A Displaced comminuted fracture of shaft of radius, left arm, initial encounter for closed fracture (principal); W18.30XA Fall on same level, unspecified, initial encounter | CPT/HCPCS: 73110 ==

== ENCOUNTER → 2023-06-04 14:19 | Outpatient (BNVA) | payer BC, SELFPAY | PROVIDERS: Referring Provider Nurse Practitioner Family; Visit Provider Student in an Organized Health Care Education/Training Program | DX: S52.502A Unspecified fracture of the lower end of left radius, initial encounter for closed fracture; S52.602A Unspecified fracture of lower end of left ulna, initial encounter for closed fracture; W17.2XXA Fall into hole, initial encounter | CPT/HCPCS: 73110 ==

== ENCOUNTER 2023-06-10 11:38 | Day surgery (SDC) | payer BC, SELFPAY ==
[2023-06-09 10:01] VITALS: BMI 37.9
[2023-06-10] VITALS (10 sets, daily range): BP systolic 121–144; BP diastolic 81–98; PULSE 57–88; RESP 16–23; TEMP 36.1–36.9; O2SAT 95–100
[2023-06-10 12:19] LABS: OR HCG Qualitative Urine Negative (Negative)
[2023-06-10] MEDS: sodium chloride 0.9% 1,000 ML 30 ML IV (12:28)
[2023-06-10] MEDS: acetaminophen 1,000 MG/100 ML PIGGYBACK 400 MG IV (12:29)
[2023-06-10] MEDS: ketorolac 30 mg/mL INJ IVP (12:29)
--- NOTE | 2023-06-10 13:26 | ANES.PREANE2 ---
Pre-Anesthetic Assessment Height/Weight: Height 1.6 m Weight 97.069 kg Temp Pulse Resp BP Pulse Ox O2 Del Method 98.4 F 88 18 141/89 98 Room Air 06/10/23 12:06 06/10/23 12:06 06/10/23 12:06 06/10/23 12:06 06/10/23 12:06 06/10/23 12:06 Preop Diagnosis: Left distal radius fracture Operation Date: 06/10/23 14:05 Proposed Procedures p Left Distal Radius Open Reduction Internal Fixation 93813, S52.502A,? T14.8XXA(Left) - Iván Hayden, DO Familial anesthetic complications: none Was Beta [place] taken within 24 hours: N/A Was Clonidine taken within 24 hours: N/A Last intake: Intake Last Liquid Date 06/09/23 Last Liquid Time 22:00 Last Solid Date 06/09/23 Last Solid Time 22:00 Social Tobacco and No alcohol Exam alert, oriented x 3, clear to auscultation bilaterally and regular rate & rhythm Airway Submandibular: within normal limits Cervical ROM: within normal limits Mallampati: Class II Dentition: full Metabolic Morbid Obesity Anesthetic Plan ASA status: 2 Anesthesia: Choice and Regional (specify below) (Left interscalene blk) Medications/Allergies Home Medications Medication Instructions Recorded Confirmed Last Taken Type ibuprofen 200 mg tablet 400 mg PO PRN 01/17/21 06/09/23 06/09/23 History Allergies Allergy/AdvReac Type Severity Reaction Status Date / Time No Known Allergies Allergy Verified 06/10/23 12:00 Current Medications Generic Name Dose Route Start Last Admin Trade Name Freq PRN Reason Stop Dose Admin Sodium Chloride 1,000 mls @ 30 mls/hr 06/10/23 12:00 06/10/23 12:28 Sodium Chloride 0.9% IV 06/11/23 11:59 30 mls/hr .Q24H RAUL Administration PFSH Anesthesia Medical History Contact dermatitis Social History Smoking and tobacco status: current every day smoker Data Anesthesia Cardiac Studies: No Data to Display Anesthesia Procedures Nerve Block Nerve Block 1: Main Anesthesia: other (GA vs MAC) Time Out Performed: Yes Consent: requested by attending/covering physician, from patient, risks and benefits reviewed and patient agrees to proceed Nerve block location: interscalene (left) Anesthesia monitors applied: pulse oximetry, EKG, BP cuff and oxygen Nerve block position: semi sitting Anesthetic Used: ropivicaine 0.5% Amount of anesthesia used (mL): 30 Ultrasound used to: recognize landmarks and visualize and ID brachial plexus Nerve Stimulator Used?: No Interscalene/Femoral BLK: 2 stimuplex 22 g needle used for position and inplane approach Injection: neg aspiration of heme Patient Tolerated Procedure: well Complications: none
--- NOTE | 2023-06-10 13:49 | W.PM.OPSUD ---
Surgery/Procedure H&P Update DATE OF PROCEDURE: June 10, 2023 DATE H&P PERFORMED: 06/04/23 CHANGES TO PREVIOUS DOCUMENTATION: None. No change in HPI visit from 06/04/2023. Patient understands risk benefits complication alternatives with surgery elects proceed with surgical intervention. All questions answered. We will proceed with left distal radius ORIF PREOP DIAGNOSIS: Left distal radius fracture PRIMARY INDICATION FOR PROCEDURE: Left distal radius fracture PLANNED PROCEDURE: Operation Date: 06/10/23 14:05 Proposed Procedures p Left Distal Radius Open Reduction Internal Fixation 87500, S52.502A,? T14.8XXA(Left) - Iván Blake, DO
[2023-06-10] MEDS: ceFAZolin 2,000 MG in sodium chloride 0.9% (plus) 50 ML 100 MG IV (13:55)
--- NOTE | 2023-06-10 15:22 | P.OP_ITS ---
Operative Report Date of procedure: June 10, 2023 Pre-op diagnosis: Preop Diagnosis Left distal radius fracture Procedure: Post-op diagnosis: Same, 3 part intra-articular Procedure done: Left distal radius open reduction internal fixation, 3-part intra-articular Implants: ?Arthrex left 3-hole narrow volar locking plate Combination of locking and nonlocking screws 2.7 mm distal Combination of locking and nonlocking screws 3.5 mm proximal Surgeon: Iván Blake DO Anesthesia: General and nerve Block (Regional) Estimated blood loss: 5 mL Tourniquet time: 27 minutes IV fluids: See anesthesia record Complications: None Findings: See operative report narrative Condition: stable Disposition: same day Brief History: Patient is a 33-year-old female who presented to my office for a [id number] left distal radius fracture.? Patient has significant comminution and shortening as well as dorsal angulation she is very active and at this point time through shared decision making patient like to proceed with a left distal radius ORIF.? We had a detailed discussion in the office about nonoperative and operative intervention.? At this point time I feel through shared decision? best option would be open reduction internal fixation she is active and already has a considerable deformity?? as result through shared decision making patient would like to proceed with ORIF left distal radius fracture.? Detail the risk benefits complication alternatives to treatment option.? Understanding risk for surgery patient elects to proceed with surgical intervention.? All questions been answered at this time. Procedure: Patient seen and evaluated in the preoperative holding area.? Consent reviewed and signed with patient.? Correct extremities were marked and consent was reviewed and signed.? Patient was seen and evaluated by anesthesia department.? Underwent regional anesthesia. Once cleared for surgery pt was taken back to the operative suite.? Patient was then transported into the operative suite and kept on the OR gurney, all bony prominences well-padded patient was appropriate secured to bed in supine position.? An armboard was applied to the left upper extremity.? The left upper extremity had a nonsterile tourniquet applied.? Patient subsequently was then prepped and draped in standard orthopedic fashion she underwent anesthesia per the anesthesia department.? A final timeout was performed.? Patient received appropriate preoperative antibiotics. Esmarch was used exsanguinate the left upper extremity and tourniquet was insufflated to 250 mmHg. A standard modified FCR volar approach was performed to the left distal radius.? Sharp scalpel incision through skin and subcutaneous tissue.? I then switched to Littler dissection scissors identify the FCR tendon releases out of the sheath both proximally and distally mobilized the tendon ulnarly and then subsequently incised the floor of the FCR tendon sheath with care to just incise the floor.? I then bluntly sweep the FPL tendon muscle belly ulnarly and placed blunt self- retaining retractor.? At this point time I direct visualization of the pronator quadratus which was incised in standard L fashion off the radial and distal border in the distal radius and fracture site was scraped clean of interposed muscle belly.? I then identified the 3 part intra-articular distal radius fracture.? This was subsequently opened above and freed of interposing muscle belly as well as periosteum and fracture hematoma.? I did have to utilize my [place] which was placed through the fracture pattern and disengage the fracture and performed manual manipulation and anatomic reduction of the distal radius fracture.? ?Once satisfied with reduction and had appropriate anatomic reduction of the volar cortex.? This was confirmed with mini C arm in multiple orthogonal imaging.? At this point time? I selected a Arthrex anatomic distal radius plate utilizing a narrow 3-hole plate which would have appropriate spread distally.? This was then placed up to the distal radius while maintaining my reduction, pins were placed distally and proximally to confirm appropriate placement of the plate along the distal radius.? Minor adjustments were made and once I was satisfied I then subsequently drilled a bicortical 3.5 screw proximally in the oblong hole to allow for appropriate sliding of the distal radius plate appropriately to perfect position on the distal radius.? This had excellent fixation and purchase and brought the plate to bone.? While maintaining my reduction I then confirmed in multiple orthogonal imaging that my plate was in appropriate position.? Once satisfied with my position I then subsequently placed the peek targeting guide on the distal locking screws with Arthrex.? The locking guide was then subsequently loaded and I subsequently drilled and placed a fully threaded cortical screw to compress the plate to bone for the distal fracture fragment.? This was performed with plan to then remove this and placed a shorter locking screw had bicortical fixation with excellent purchase and appropriate reduction of my volar tilt and bringing plate to bone of the distal fragment and plate.? Once I was satisfied with my plate position as well as reduction of the distal radius which was confirmed on AP oblique and lateral imaging I then subsequently drilled measured and placed 3 locking screws around this cortical screw.? Then I subsequently removed the cortical screw and placed a shorter locking screw that did not penetrate the dorsal cortex.?? This completed my distal fixation.? I did utilize mini C arm to confirm appropriate placement of the screws these were all within the distal radius and no joint involvement within the radiocarpal joint or the DRUJ.? These had appropriate subchondral support and maintenance of reduction and fixation of the distal radius fracture.? ?I then turned my attention proximally and then I screwed in the locking guides for my final to screws proximally these were then subsequently drilled measured and appropriate length locking screws were then placed proximally with excellent fixation and locking technology into the plate.? This completed my construct.? The peek guide was subsequently removed and final imaging of the left distal radius open reduction internal fixation was taken of AP lateral as well and is orthogonal imaging.? I then took a inclination view which showed my radial styloid screw was out of the penetration of the joint.? All my distal screws were appropriate length did not penetrate dorsal cortex and did not penetrate the joint.? This completed my fixation.? Smooth wrist range of motion was then noted with no evidence of clicking. Wrist was then taken through pronation supination and stressed the DRUJ which was found to be stable.? The wound was then thoroughly irrigated.? Tourniquet was then subsequently deflated.? Hemostasis satisfactory with bipolar electrocautery.? I then subsequently placed interrupted 3-0 Vicryl sutures for subcutaneous tissue and then subsequently placed a nylon the skin for closure.? Incision was then dressed with Xeroform 4 x 4's Kerlix cast padding and a volar Ortho-Glass splint was then applied with Trever wrap and placed in a sling.? Disposition: Patient taken to PACU in stable condition recovering well receive appropriate discharge instructions as well as pain medication postoperatively.? Maintain splint until follow-up.? Nonweightbearing to operative upper extremity We will follow-up with Dr. Blake in the office in 2 weeks.? If any questions or concerns feel free to contact the office.
--- NOTE | 2023-06-10 15:22 | P.OP_ITS ---
Brief Operative Note Date of procedure: 06/10/23 Pre-op diagnosis: Left distal radius fracture Post-op diagnosis: same (Three-part intra-articular) Procedure Done: Left distal radius open reduction internal fixation three-part intra-articular Surgeon: Iván Blake Estimated blood loss (mL): 5 Complications: None Post-op Plan: Patient taken to PACU in stable condition recovering well receive appropriate discharge instructions as well as pain medication postoperatively splint on in place until follow-up. Nonweightbearing left upper extremity. We will follow- up in the orthopedic office in 2 weeks. All questions answered. Condition: stable Disposition: same day Coding Level of Care Code Acute Code for g Fwd
--- NOTE | 2023-06-10 15:22 | PM.PACU ---
PACU note Narrative: Patient seen evaluated in PACU recovering well. Still somewhat sedated from anesthesia unable to fully assess the patient did receive regional anesthesia. Unable to fully assess motor or sensory. Hands warm well-perfused brisk cap refill less than 2 seconds. Splint on in place to left upper extremity. With sling. Exam: somnolent, arousable Disposition: discharged
--- NOTE | 2023-06-10 15:38 | ANE.PACU2 ---
Inpatient post-anesthesia follow up: Airway intact: Yes Vital signs: Temperature 97.2 F Pulse Rate 61 Respiratory Rate 23 Blood Pressure 134/90 Pulse Oximetry 98 Oxygen Delivery Me thod Simple Mask Oxygen Flow Rate 6 Fraction of Inspir ed Oxygen Hydration adequate: Yes Nausea and vomiting: No Pain level: 2 Mental status: Baseline
--- NOTE | 2023-06-11 | XR_ITS ---
WS: [id number] Left wrist, C-arm fluoroscopy views, 06/10/2023 Clinical Data: OR Pic. Left wrist ORIF Comparison: Left wrist, 06/04/2023 Findings: Dr. Blake inserted a ventral plate with screws to reduce the distal left radial fracture. XR/XR wrist LT 2V [id number] Impression: Internal fixation of distal left radial fracture.
== END 2023-06-10 16:33 | disposition home or self-care (01) ==
PROVIDERS: Visit Provider Student in an Organized Health Care Education/Training Program
PROC: (CPT 25609; principal; 2023-06-10 14:05)
DX: S52.572A Other intraarticular fracture of lower end of left radius, initial encounter for closed fracture (principal); X58.XXXA Exposure to other specified factors, initial encounter; E66.01 Morbid (severe) obesity due to excess calories; Z68.37 Body mass index [BMI] 37.0-37.9, adult; F17.200 Nicotine dependence, unspecified, uncomplicated
CPT/HCPCS: 25609; 73100; 76000; 81025; 84703; C1713; J0131; J0690; J1885; J2250; J2704; J2795; J7030

== ENCOUNTER → 2023-06-23 06:53 | Outpatient (BNVA) | payer BC, SELFPAY | PROVIDERS: Visit Provider Student in an Organized Health Care Education/Training Program | DX: S52.502A Unspecified fracture of the lower end of left radius, initial encounter for closed fracture (principal); S52.602A Unspecified fracture of lower end of left ulna, initial encounter for closed fracture; X58.XXXA Exposure to other specified factors, initial encounter | CPT/HCPCS: 73110 ==

== ENCOUNTER → 2023-07-23 14:23 | Outpatient (BNVA) | payer SELFPAY | PROVIDERS: Visit Provider Physician Assistant | DX: S52.502A Unspecified fracture of the lower end of left radius, initial encounter for closed fracture (principal); S52.602A Unspecified fracture of lower end of left ulna, initial encounter for closed fracture; X58.XXXA Exposure to other specified factors, initial encounter | CPT/HCPCS: 73100 ==